=== PATIENT | male | born 1950 | race Caucasian/White ===

== ENCOUNTER 2018-08-01 08:14 | Emergency (ER) | payer MEDICARE ==
[2018-08-01 08:35] LABS: #Basophils 0.1 thou/uL (0.0-0.2); #Eosinphils 0.2 thou/uL (0.0-0.7); #Monocytes 0.6 thou/uL (0.11-0.59); #Neutrophils 3.5 thou/uL (1.40-6.50); %Basophils 1.4 % (0.0-1.0); %Eosinophils 2.2 % (0.0-10.0); %Lymphocytes 40.9 % (21.0-51.0); %Monocytes 7.7 % (0.0-10.0); %Neutrophils 47.8 % (42.0-75.0); Hemoglobin 15.5 g/dL (14.0-18.0); Mean Corpuscular HGB CONC 31.9 g/dL (32.0-36.0); Mean Corpuscular Hemoglobin 29.8 pg (27.0-31.0); Mean Corpuscular Volume 93.5 fL (78.0-98.0); Platelet Count 136 thou/uL (130-400); RBC Distribution Width 12.5 % (11.5-14.5); White Blood Cell (WBC) Count 7.3 thou/uL (4.8-10.8)
[2018-08-01 08:49] LABS: ALT (SGPT) 26 U/L (8-55); AST (SGOT) 40 U/L (5-34); Albumin 4.2 g/dL (3.4-4.8); Alkaline Phosphatase 53 U/L (40-150); Anion Gap 14 mmol/L (10-20); BUN (Urea Nitrogen) 25 mg/dL (8.4-25.7); Bilirubin, Total 0.7 mg/dL (0.2-1.2); Calc. Creatinine Clearance 0 mL/min (70-130); Calcium 9.2 mg/dL (7.8-10.44); Carbon Dioxide 27 mmol/L (23-31); Chloride 105 mmol/L (98-107); Estimated GFR-MDRD 71; Globulin 2.6 g/dL (2.4-3.5); Glucose 157 mg/dL (80-115); Potassium 3.8 mmol/L (3.5-5.1); Protein, Total 6.8 g/dL (5.8-8.1); Sodium 142 mmol/L (136-145)
[2018-08-01] MEDS ORDERED: Aspirin Chewable 81 MG TAB ONE (09:20)
[2018-08-01] MEDS ORDERED: Enoxaparin Sodium 100 MG/ML SYRINGE ONE (09:20)
--- NOTE | 2018-08-01 18:20 | RAD ---
PORTABLE CHEST: 08/01/18 An AP portable film at 0830 is presented with no prior films available for comparison. The heart is upper normal in size to minimally enlarged. There are no congestive changes or pleural e ffusions. The lungs are largely clear except for some minor streaking over the right hemidiaphragm th at is most likely atelectasis. IMPRESSION: Borderline heart size. POS: HOME
== END 2018-08-01 09:48 | disposition short-term general hospital (02) ==
LOC: BURERS 08:14
DX: I20.0 Unstable angina (principal); Z87.891 Personal history of nicotine dependence
CPT/HCPCS: 71045; 80053; 83690; 83880; 84484; 85025; 93005; 96372; J1650